=== PATIENT | male | born 1995 ===

== ENCOUNTER → 2025-06-26 12:27 | Outpatient (CLI) | payer OTHER, SELFPAY ==
--- NOTE | 2025-06-26 12:35 | DI.ECHO.S_ITS ---
[place] [facility]+ [facility] : : [address] : : [place] : : [id number] : : Phone: [phone] Echocardiogram Report + + :Name: DAMON SHAY Study Date: 06/26/2025 Height: 68 in : :[facility] ReadingLocation: Weight: 220 lb : : Gender: Male BSA: 2.1 m2 : :: 1995 Age: 30 yrs BP: 122/76 mmHg: :Reason For Study: Syncope, palpitations : :Ordering Physician: Shania, : :Wayne Plunkett MD Performed By: Nikita Florian : :Referring: Wayne Jauregui MD : + + Interpretation Summary Normal sinus rhythm. Normal LV size and wall thickness; normal wall motion and LV systolic function. EF is 55-60%. Normal chamber sizes. No significant valve abnormalities. No prior echo available for comparison. Procedure: A two-dimensional transthoracic echocardiogram with color flow and Doppler was performed. The study quality was technically adequate. The patient had an echocardiogram, but there is no comparison study available. The patient was in normal sinus rhythm during the exam. Left Ventricle: The left ventricle is normal in size and wall thickness. Left ventricular systolic function is normal. The ejection fraction is estimated to be 55-60%. There are no focal wall motion abnormalities. Normal diastolic function. Right Ventricle: The right ventricle is normal in size and function. Atria: The left atrial size is normal. Right atrial size is normal. There is no Doppler evidence for an interatrial shunt. Mitral Valve: The mitral valve leaflets appear to open well. There is no evidence of mitral valve prolapse. There is no mitral valve stenosis. There is trace mitral regurgitation. Aortic Valve: The aortic valve is trileaflet. The aortic valve opens well. There is no aortic valve stenosis. No aortic regurgitation is present. Tricuspid Valve: The tricuspid valve leaflets are thin and pliable. There is trace tricuspid regurgitation. The right ventricular systolic pressure is estimated to be at least 19 mmHg based on an estimated right atrial pressure of 3 mm Hg. Pulmonic Valve: The pulmonic valve leaflets are thin and pliable; valve motion is normal. There is a trace or physiologic amount of pulmonic regurgitation. Great Vessels: The aortic root is normal size. The ascending aorta is normal in size. The aortic arch could not be visualized. The pulmonary artery is normal size. The IVC is of normal diameter and collapses greater than 50% with a sniff. This suggests a low right atrial pressure of 3 mm Hg. Pericardium/ Pleura There is no pericardial effusion. MMode/2D Measurements & Calculations LVIDd: 5.2 cm LVOT diam: 2.1 cm LVIDs: 3.7 cm Ao root diam: 3.8 cm FS: 28.1 % asc Aorta Diam: 3.0 cm IVSd: 0.85 cm LVPWd: 0.88 cm LV zuniga. diameter/BSA (cm/m^2): 2.4 LV sys. diameter/BSA (cm/m^2): 1.8 LA A2 area: 13.9 cm2 RA long axis: 4.7 cm LA A4 area: 13.3 cm2 RA area: 12.3 cm2 LA length (vol): 5.3 cm RA vol: 27.5 ml LA vol: 29.8 ml RA : 12.9 ml/m2 LA vol index: 14.0 ml/m2 IVC diam: 1.2 cm RVD1 (basal): 3.2 cm RVD2 (mid): 2.8 cm TAPSE: 1.7 cm Doppler Measurements & Calculations Ao V2 max: 93.7 cm/sec LVOT Max Iain: 89.9 cm/sec Ao V2 mean: 69.9 cm/sec LV V1 max P.2 mmHg Ao max P.5 mmHg LV V1 VTI: 16.3 cm Ao mean P.1 mmHg WADE(I,D): 3.0 cm2 Ao V2 VTI: 18.8 cm WADE(V,D): 3.3 cm2 sev ratio: 0.87 WADE indexed to BSA (cm^2/m^2): 1.4 MV E max iain: 57.6 cm/sec TR max iain: 197.6 cm/sec MV A max iain: 50.9 cm/sec TR max P.6 mmHg MV E/A: 1.1 PA V2 max: 69.4 cm/sec Med Peak E' Iain: 6.0 cm/sec PA V2 mean: 52.2 cm/sec E/E' med: 9.6 PA mean P.2 mmHg Lat Peak E' Iain: 11.9 cm/sec PA pr(Accel): 27.6 mmHg E/E' lat: 4.9 E/e' average: 7.2 MV dec time: 0.16 sec SV(LVOT): 56.2 ml Qp/Qs (V,Ao): 1.0/3.1 Qp/Qs (V,LVOT): 1.1/1.0 Electronically signed by: Bianca Elias M.D. on Reading Physician:06/27/2025 03:27 AM
== END ==
LOC: ECHO 12:33
PROVIDERS: PCP Surgery; Referring Provider Surgery; Visit Provider Surgery
DX: I25.9 Chronic ischemic heart disease, unspecified (principal); R55 Syncope and collapse; R00.2 Palpitations
CPT/HCPCS: 93306